=== PATIENT | male | born 1980 | race Caucasian/White ===

== ENCOUNTER 2019-01-19 07:37 | Outpatient (CLI) | payer OTHER ==
--- NOTE | 2019-01-19 10:15 | MRI Report ---
Reason: STRAIN OF MUSCLE,FASCIA AND TENDON OF LOWER BACK Procedure Date: 01/19/2019 Accession Number: [id number] / [id number] Procedure: MRI - Lumbar Spine W/O CPT Code: FULL RESULT: EXAM: MRI LUMBAR SPINE WITHOUT CONTRAST EXAM DATE: 01/19/2019 08:15 AM. CLINICAL HISTORY: Strain of muscle, fascia and tendon of lower back. Increasing groin pain for the last year. Low back pain since 2006. COMPARISON: None. TECHNIQUE: Multiplanar, multisequence T1-weighted and fluid-sensitive sequences of the lumbar spine from T12 to S1 without contrast. Other: None. FINDINGS: Spinal Canal: The conus terminates at L1. The conus medullaris and cauda equina are unremarkable. Alignment: Minimal nonspecific broad-based rightward convex asymmetric lumbar curve. No evidence for spondylolysis or spondylolisthesis. Bone Marrow: Five [id number] lumbar vertebral bodies are assumed. Moderate chronic type II degenerative endplate signal changes on both sides of the arthritic L4-L5 disk space. No acute vertebral body height loss. Disk Levels/Facets: T12-L1: Unremarkable. L1-L2: Unremarkable. L2-L3: Unremarkable. L3-L4: Slightly narrowed disk space. Minimal circumferential bulge. Facet arthropathy. No stenosis. L4-L5: Moderate disk degeneration. Desiccated and narrowed disk space. Moderately prominent circumferential disk bulge. Minimal to mild facet arthropathy. Mild marginal spurring accompanies the circumferential bulge as it extends laterally into the foraminal and extraforaminal zones. Patent central canal. Minimal lateral recess stenosis. Mild foraminal stenosis. No definite nerve root compression. L5-S1: Mild to moderate disk degeneration. Unremarkable facets. Circumferential disk bulge. Posterior annular fissure. Additional asymmetric shallow left intraforaminal protrusion. Patent central canal and lateral recesses. Foraminal stenosis is minimal on the right and mild on the left. Musculature: Normal. No edema or fatty atrophy. Other: None. IMPRESSION: Degenerative changes in the lumbar spine are most severe at the L4-L5 and L5-S1 levels as described above. Stenosis is present but relatively mild without definite focal nerve root compression. Comment: The following findings are so common in adults without low back pain that while we report their presence, they must be interpreted with caution and in the context of the clinical situation. (Reference Ellyn et al, Spine 2001) Prevalence of findings in patients without low back pain: Disk degeneration (any evidence): 92% Disk desiccation/T2 signal loss: 83% Disk height loss: 56% Disk bulge: 64% Disk protrusion: 32% Annular tear/high intensity zone: 38% RADIA
== END 2019-01-19 07:38 | disposition home or self-care (01) ==
LOC: DI 07:37
DX: S39.012A Strain of muscle, fascia and tendon of lower back, initial encounter (principal); M51.36 Other intervertebral disc degeneration, lumbar region; M48.061 Spinal stenosis, lumbar region without neurogenic claudication
CPT/HCPCS: 72148

== ENCOUNTER 2023-02-19 08:53 | Outpatient (CLI) | payer OTHER ==
--- NOTE | 2023-02-19 12:23 | MRI Report ---
PROCEDURE: LUMBAR SPINE WO INDICATIONS: LOW BACK PAIN TECHNIQUE: Noncontrast sagittal T1 spin echo and T2 fast echo, sagittal STIR, axial T1 and T2 fast spin echo thr ough the lumbar spine. In cases with scoliosis, additional coronal T2 fast spin echo may be performe d. COMPARISON: 01/19/2019 FINDINGS: Image quality: Diagnostic. Alignment and Curvature: There is normal bony alignment. Bone Marrow: Marrow is of normal overall signal. No acute vertebral body compression fractures. Spinal Cord: Conus medullaris terminates at the L1 level. Visualized cord demonstrates normal signa l and size. Paraspinous Soft Tissues: No paravertebral masses. T12-L1: Normal in appearance. L1-L2: Normal in appearance. L2-L3: Normal in appearance. L3-L4: The disc height and disc signal are well preserved. Mild disc bulge is seen, with a mild max tral disc protrusion. Mild facet hypertrophy is seen. There is mild right-sided and no left-sided ne uroforaminal narrowing. Mild central canal narrowing is seen. There is slight progression compared t o the prior. L4-L5: Moderate to severe loss of disc height and disc signal can be seen. Reactive marrow endplat e changes are seen, which are hyperintense on T1-weighted and T2-weighted imaging, without significan t increased STIR signal. 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 Moderate disc bulge is seen, which is slightly eccentric to the left. A superimposed cent ral disc protrusion is seen. There is at least moderate left-sided neuroforaminal narrowing, with a m ild degree of compression upon the exiting left L4 nerve root. Moderate right-sided neural. Moderate central canal narrowing is seen. These degenerative changes have progressed when compared to the kiana or examination. L5-S1: Mild loss of disc height and disc signal are seen. Mild to moderate disc bulge is seen, whic h is eccentric to the left. A superimposed central disc protrusion is seen. Mild facet hypertrophy i s seen. There is at least moderate bilateral neuroforaminal narrowing seen. Compression is seen upon the exiting nerve roots. Mild central canal narrowing is seen. These degenerative changes have mil dly progressed when compared to the prior examination. IMPRESSION: Multiple levels of lumbar spine degenerative change can be seen, which are overall worst at the L4-L5 level. Compared to the 2019 examination, the degenerative changes are progressed. Reviewed by: Martin Aguilar MD on 02/19/2023 11:22 AM [facility] Approved by: Martin Aguilar MD on 02/19/2023 11:22 AM [facility] Station ID: [id number]
--- NOTE | 2023-02-19 20:48 | MRI Report ---
PROCEDURE: PELVIS WO INDICATIONS: LOW BACK PAIN TECHNIQUE: Noncontrast axial T1 spin echo and STIR through the bony pelvis. Oblique axial, oblique coronal, and sagittal T1 spin echo and STIR through the sacrum. COMPARISON: None. FINDINGS: Image quality: Excellent. Lumbosacral plexus: No suspicious mass or extrinsic compression is seen along the courses of the bila teral sacral nerve roots, lumbosacral plexuses, or proximal sciatic nerves. Piriformis muscles are sy mmetric. Bones: No acute trabecular bone injury or fracture. Mild degenerative changes at the lower lumbar spi ne. Mild degenerative changes are seen in the sacroiliac joints bilaterally without signs of acute or chronic sacroiliitis. Soft tissues: The musculature surrounding the hips is normal in bulk. No presacral mass or presacral edema. The rectum appears normal. Distal colon is nondistended. The prostate and bladder are unremark able.No inguinal hernia is seen. No significant pelvic lymphadenopathy. IMPRESSION: 1.Surgical nerve roots and lumbosacral plexus are unremarkable. 2.Mild degenerative changes at the sacroiliac joints and included spine. Reviewed by: Micky Raman MD on 02/19/2023 8:46 PM PDT Approved by: Micky Raman MD on 02/19/2023 8:46 PM PDT Station ID: [id number]
== END 2023-02-19 08:54 | disposition home or self-care (01) ==
LOC: DI 08:53
PROVIDERS: ATTEND General Practice
DX: M47.816 Spondylosis without myelopathy or radiculopathy, lumbar region (principal); M47.898 Other spondylosis, sacral and sacrococcygeal region

== ENCOUNTER 2023-05-25 08:51 | Emergency (ER) | payer OTHER ==
[2023-05-25 09:10] VITALS: O2SAT 98
[2023-05-25 09:39] LABS: BASOPHILS % (AUTO) 0.6 %; EOSINOPHILS # (AUTO) 0.1 10^3/uL (0.0-0.7); EOSINOPHILS % (AUTO) 1.4 %; HCT - HEMATOCRIT 42.4 % (42.0-52.0); HGB - HEMOGLOBIN 14.6 g/dL (14.0-18.0); LYMPHOCYTES # (AUTO) 2.5 10^3/uL (1.5-3.5); LYMPHOCYTES % (AUTO) 37.4 %; MEAN CORPUSCULAR HEMOGLOBIN 29.7 pg (27.0-31.0); MEAN CORPUSCULAR HGB CONC 34.4 g/dL (32.0-36.0); MEAN CORPUSCULAR VOLUME 86.4 fL (80.0-94.0); MEAN PLATELET VOLUME 9.4 fL (7.4-11.4); MONOCYTES # (AUTO) 0.6 10^3/uL (0.0-1.0); MONOCYTES % (AUTO) 9.3 %; NEUTROPHILS # (AUTO) 3.3 10^3/uL (1.5-6.6); NEUTROPHILS % (AUTO) 50.7 %; PLT - PLATELET COUNT 316 10^3/uL (130-450); RED BLOOD COUNT 4.91 10^6/uL (4.70-6.10); RED CELL DISTRIBUTION WIDTH 11.9 % (12.0-15.0); WHITE BLOOD COUNT 6.6 x10^3/uL (4.8-10.8)
[2023-05-25 09:51] LABS: BILIRUBIN,URINE NEGATIVE (NEGATIVE); GLUCOSE, URINE (UA) NEGATIVE (NEGATIVE); KETONES,URINE (UA) NEGATIVE (NEGATIVE); LEUKOCYTE ESTERASE, URINE NEGATIVE (NEGATIVE); NITRITE,URINE NEGATIVE (NEGATIVE); OCCULT BLOOD,URINE NEGATIVE (NEGATIVE); PH,URINE 6.5 PH (5.0-7.5); PROTEIN,URINE NEGATIVE (NEGATIVE); UROBILINOGEN,URINE 0.2 (NORMAL) E.U./dL (NORMAL)
[2023-05-25 09:54] LABS: ALBUMIN/GLOBULIN RATIO 2.2 (1.0-2.2); BILIRUBIN,TOTAL 0.5 mg/dL (0.2-1.0); CALCIUM 10.3 mg/dL (8.5-10.3); CREATININE 1.1 mg/dL (0.6-1.3); POTASSIUM 4.3 mmol/L (3.5-4.5); TOTAL PROTEIN 7.3 g/dL (6.4-8.9)
[2023-05-25 09:57] LABS: CLARITY,URINE CLEAR (CLEAR)
[2023-05-25] MEDS ORDERED: iohexoL-300 100 ML VIAL IVP ONE (10:37)
--- NOTE | 2023-05-25 10:52 | ED Physician Documentation ---
PD HPI ABD PAIN - Stated complaint Stated Complaint: RT SIDE ABD PX - Chief complaint Chief Complaint: Abd Pain - History obtained from History obtained from: Patient - Additional information Additional information: 43-year-old male with no reported past medical history presents for evaluation of right-sided abdominal pain for 1 day. Patient noticed a "tightening" sensation when he lifted his children yesterday, but thought little of it and continued his daily routine. This morning he noticed a twinge of discomfort in his right abdomen, he pressed down on his abdomen and stated that his pain was so severe it caused him to become nauseous and faint. This prompted him to come to the emergency department for evaluation. Currently no abdominal discomfort. No history of abdominal surgeries. Denies testicular pain or bulging Review of Systems Constitutional: denies: Fever, Chills Cardiac: denies: Chest pain / pressure, Palpitations Respiratory: denies: Dyspnea, Cough, Wheezing GI: reports: Abdominal Pain, Nausea. denies: Vomiting : denies: Dysuria, Frequency, Hesitancy Neurologic: denies: Generalized weakness, Focal weakness, Numbness PD PAST MEDICAL HISTORY - Past Medical History Past Medical History: No - Past Surgical History Past Surgical History: Yes Ortho: Other - Present Medications Home Medications: Ambulatory Orders Medication Instructions Recorded Confirmed No Known Home Medications 05/25/23 05/25/23 - Allergies Allergies/Adverse Reactions: Allergies Allergy/AdvReac Type Severity Reaction Status Date / Time No Known Drug Allergies Allergy Verified 05/25/23 09:01 - Social History Does the pt smoke?: No Smoking Status: Never smoker PD ED PE NORMAL - Vitals Vital signs reviewed: Yes - General General: Alert and oriented X 3, No acute distress, Well developed/nourished - HEENT HEENT: Atraumatic - Neck Neck: Supple, no meningeal sign - Cardiac Cardiac: RRR - Respiratory Respiratory: No respiratory distress - Abdomen Abdomen: Soft, Non tender, Non distended - Derm Derm: Normal color, Warm and dry, No rash - Extremities Extremities: No deformity, No tenderness to palpate, Normal ROM s pain - Neuro Neuro: Alert and oriented X 3, physician obstetrician 2-12 intact, No motor deficit, Normal speech - Psych Psych: Normal mood, Normal affect Results - Vitals Vitals: Vital Signs - 24 hr 05/25/23 05/25/23 08:59 12:30 Temperature 36.1 C L 36.7 C Heart Rate 74 90 Respiratory 16 14 Rate Blood Pressure 146/85 H 128/72 O2 Saturation 98 98 Oxygen O2 Source Room air - Labs Labs: Laboratory Tests 05/25/23 05/25/23 05/25/23 09:34 09:34 09:46 WBC 6.6 RBC 4.91 Hgb 14.6 Hct 42.4 MCV 86.4 MCH 29.7 MCHC 34.4 RDW 11.9 L Plt Count 316 MPV 9.4 Neut # (Auto) 3.3 Lymph # (Auto) 2.5 Owen # (Auto) 0.6 Eos # (Auto) 0.1 Baso # (Auto) 0.0 Absolute Nucleated RBC 0.00 Nucleated RBC % 0.0 Sodium 138 Potassium 4.3 Chloride 104 Carbon Dioxide 29 Anion Gap 5.0 L BUN 10 Creatinine 1.1 Estimated GFR (MDRD) 74 L Glucose 96 Calcium 10.3 Total Bilirubin 0.5 AST 20 ALT 37 Alkaline Phosphatase 77 Total Protein 7.3 Albumin 5.0 Globulin 2.3 Albumin/Globulin Ratio 2.2 Lipase 42 Urine Color YELLOW Urine Clarity CLEAR Urine pH 6.5 Ur Specific [place] <=1.005 Urine Protein NEGATIVE Urine Glucose (UA) NEGATIVE Urine Ketones NEGATIVE Urine Occult Blood NEGATIVE Urine Nitrite NEGATIVE Urine Bilirubin NEGATIVE Urine Urobilinogen 0.2 (NORMAL) Ur Leukocyte Esterase NEGATIVE Ur Microscopic Review NOT INDICATED Urine Culture Comments NOT INDICATED PD Medical Decision Making - ED course Complexity details: reviewed results, re-evaluated patient, considered differential, d/w patient ED course: Well-appearing patient with right-sided abdominal pain. Abdomen is currently soft, no significant reproducible tenderness to light or deep palpation. Given the location as well as the reported severity of patient's pain will obtain labs and CT imaging. Laboratory work is unremarkable. CT imaging negative for acute findings. Urinalysis is clear, no evidence of stones. Patient informed of all lab and imaging results, no obvious explanation for patient's symptoms. Patient states that he will call his primary care physician and will take it easy for the next few days and avoid heavy lifting, and wonders if he might have strained an abdominal muscle while lifting. Departure - Departure Disposition: 01 Home, Self Care Clinical Impression: Abdominal pain Qualifiers: Abdominal location: right lower quadrant Qualified Code(s): R10.31 - Right lower quadrant pain Condition: Stable Instructions: Abdominal Pain Forms: PCP List Discharge Date/Time: 05/25/23 12:31
--- NOTE | 2023-05-25 11:02 | CT Report ---
PROCEDURE: CT abdomen pelvis with contrast INDICATIONS: RLQ ABD PAIN TECHNIQUE: Helical axial CT of the abdomen and pelvis was obtained after intravenous contrast adminis tration and reformatted in multiple planes. Radiation dose reduction was achieved using automated exp osure control or adjustment of mA and/or kV according to patient size. COMPARISON: None FINDINGS: Lower thorax: The lung bases are clear. Heart size normal. No hiatal hernia. Liver: Normal in size and attenuation. No contour deformity present. Biliary system: No calcified cholelithiasis or pericholecystic inflammation. No evidence of bile du ct dilatation. Pancreas: Unremarkable without mass or inflammation evident. Spleen: Normal in size and density. Adrenals: Normal morphology and density. Reproductive system: Unremarkable as visualized. Urinary system: Normal renal size and attenuation. No renal calculi, hydronephrosis, or solid mass p resent. Urinary bladder unremarkable. Gastrointestinal system: The bowel appears unremarkable with no evidence of bowel obstruction or inf lammation. The stomach appears unremarkable. Appendix: Normal-appearing appendix identified. No appendicitis. Peritoneal spaces: No mesenteric or retroperitoneal adenopathy. No free air. No free fluid. Vasculature: The IVC, aorta and iliac vasculature are unremarkable. Abdominal wall: Abdominal wall is intact without evidence of ventral or inguinal hernias. Musculoskeletal: Normal bone mineralization. No acute fractures. IMPRESSION: Normal CT of the abdomen and pelvis. Normal appendix identified. No evidence of appendicitis. Reviewed by: Timothy Vanegas MD on 05/25/2023 10:[address] [facility] Approved by: Timothy Vanegas MD on 05/25/2023 10:[address] [facility] Station ID: [id number]
[2023-05-25 12:39] VITALS: BP 128/72
== END 2023-05-25 12:31 | disposition home or self-care (01) ==
LOC: ED 08:51
DX: R10.31 Right lower quadrant pain (principal)
CPT/HCPCS: 36415; 74177; 80053; 81003; 83690; 85025; 99283; 99284; Q9967; 81001; 87086